=== PATIENT | male | born 1985 | race Caucasian/White ===

== ENCOUNTER → 2016-07-17 | Outpatient (CLI) | payer OTHER ==
--- NOTE | 2016-07-17 17:59 | CPEEG ---
4-HOUR VIDEO EEG DATE OF STUDY: 07/17/2016 INTERPRETATION: This 4-hour video EEG recording is abnormal due to the presence of rare left temporal sharp waves. These findings would be consistent with a focal seizure disorder. In addition, there was a mild degree of focal slowing over the left temporal head region. These finding would be consistent with a mild focal disturbance of cerebral function. During the video EEG monitoring session, the patient did not have any clinical events. REPORT: This 4-hour video EEG contains 10 Hz alpha activity in the posterior head regions. At baseline, the patient had rare activation of left temporal sharp waves. In addition, there was a mild degree of focal slowing over the left temporal head region. There was no additional activation with hyperventilation or photic stimulation. The patient became drowsy and fell asleep during the study. During drowsiness and sleep, there was rare activation of additional left temporal sharp waves. During the video EEG monitoring session, the patient denied any clinical events. /[id number]/MODL MTDD
== END ==
LOC: FCPNEURO 08:35
PROVIDERS: ATTEND Psychiatry & Neurology Neurology
DX: G40.909 Epilepsy, unspecified, not intractable, without status epilepticus (principal); R94.01 Abnormal electroencephalogram [EEG]

== ENCOUNTER → 2016-07-24 | Outpatient (CLI) | payer OTHER | LOC: FIMAGING 11:49 | PROVIDERS: ATTEND Psychiatry & Neurology Neurology | DX: G40.909 Epilepsy, unspecified, not intractable, without status epilepticus (principal) ==